=== PATIENT | male | born 1930 | race Hispanic/Latino ===

== ENCOUNTER 2019-02-24 21:05 | Inpatient (IN) | payer MEDICARE ==
[~2019-02-24] VITALS: Ht 157.5 cm; Wt 71.2 kg
[~2019-02-24 21:05] MED LIST: DUTA.5 PO; LISI10TA7 PO; SOLI5 PO
[2019-02-24 22:33] LABS: BASOPHILS % (AUTO) 0.5 % (0.0-5.0); HEMATOCRIT 43.4 % (42-54); LYMPHOCYTES % (AUTO) 3.3 % (21.0-51.0); MEAN CORPUSCULAR HEMOGLOBIN 29.6 pg (27.0-33.0); MEAN CORPUSCULAR HGB CONC 33.4 g/dL (32.0-36.0); MEAN CORPUSCULAR VOLUME 88.5 fL (79-99); MONOCYTES % (AUTO) 3.9 % (3.0-13.0); NEUTROPHILS % (AUTO) 92.3 % (40.0-77.0); PLATELET COUNT (AUTO) 159 K/uL (130-400); RED CELL DISTRIBUTION WIDTH 14.2 % (11.0-15.5); WHITE BLOOD COUNT (AUTO) 15.6 K/uL (4.8-10.8)
[2019-02-24 22:44] LABS: CREATININE 1.3 mg/dL (0.5-1.5)
[2019-02-24] MEDS ORDERED: HYDRALAZINE HCL 20 MG/ML VIAL ONE (22:46)
[2019-02-24] MEDS ORDERED: ONDANSETRON HCL 4 MG/2 ML VIAL ONE (22:46)
[2019-02-24] MEDS ORDERED: MORPHINE SULFATE 4 MG/1ML SYG ONE (22:46)
[2019-02-24 23:01] LABS: ALBUMIN 3.9 g/dL (3.5-5.0); TOTAL PROTEIN, SERUM 7.8 g/dL (6.0-8.3)
[2019-02-24] MEDS ORDERED: ACETAMINOPHEN EXTRA STRENGTH 500 MG TABLET ONE (23:03)
[2019-02-24 23:30] VITALS: BP 149/77
[2019-02-24 23:34] LABS: APPEARANCE,URINE Cloudy (CLEAR); BILIRUBIN,URINE Negative (NEGATIVE); COLOR,URINE Orange (YELLOW); GLUCOSE, URINE (UA) TRACE mg/dL (NEGATIVE); KETONES,URINE 15 mg/dL (NEGATIVE); LEUKOCYTE ESTERASE ,URINE Moderate (NEGATIVE); NITRATE,URINE Negative (NEGATIVE); OCCULT BLOOD,URINE Large (NEGATIVE); PH,URINE 7.5 (5.0-8.0); PROTEIN,URINE POS 2+ mg/dL (NEGATIVE)
[2019-02-24 23:42] LABS: BACTERIA,URINE Moderate /HPF (None Seen); SQUAMOUS EPITHELIAL CELL,UR Few /HPF (0-2); WBC,URINE 51-100 /HPF (0-1)
[2019-02-24 23:43] LABS: MUCUS,URINE Rare LPF (None Seen)
[2019-02-24] MEDS ORDERED: CEFTRIAXONE SODIUM 1 GM ONE (23:53)
[2019-02-25] MEDS: SODIUM CHLORIDE 0.9% 1000ML 1,000 ML IV SCH ×2 (00:05→16:05)
[2019-02-25] MEDS ORDERED: CEFTRIAXONE SODIUM 1 GM IV SCH (00:15)
[2019-02-25] MEDS ORDERED: ONDANSETRON HCL 4 MG/2 ML VIAL IV PRN (00:15)
[2019-02-25] MEDS ORDERED: ACETAMINOPHEN 325 MG TAB PO PRN ×2 (00:15)
[2019-02-25] MEDS ORDERED: HYDRALAZINE HCL 20 MG/ML VIAL IV PRN (00:15)
[2019-02-25] MEDS ORDERED: MORPHINE SULFATE 2 MG/ML 1ML SYG IVP PRN (00:30)
--- NOTE | 2019-02-25 01:20 | NUR ---
ADMISSION. PT ADMITTED INTO ROOM 431 FROM ER VIA STRETCHER. PT AWAKE, ALERT AND RESPONSIVE, NO C/O PAIN OR DISCOMFORT AT THIS TIME. ACCOMPANIED BY FAMILY MEMBERS, PT AND FAMILY ORIENTED TO ROOM, CALL NOLEN IN REACH, BED IN LOWER POSITION. Addendum: 02/25/19 at 0126 by ALICJA MOLINA RN Amended: Links added.
[2019-02-25] MEDS ORDERED: DiphenhydrAMINE HCL 50 MG/ML VIAL IV SCH (02:15)
[2019-02-25] MEDS ORDERED: DiphenhydrAMINE HCL 50 MG/ML VIAL ONE (02:16)
[2019-02-25 03:30] VITALS: BP 138/61
[2019-02-25 04:26] LABS: BASOPHILS % (AUTO) 0.3 % (0.0-5.0); HEMATOCRIT 39.9 % (42-54); LYMPHOCYTES % (AUTO) 2.3 % (21.0-51.0); MEAN CORPUSCULAR HEMOGLOBIN 30.2 pg (27.0-33.0); MEAN CORPUSCULAR VOLUME 88.9 fL (79-99); MONOCYTES % (AUTO) 6.7 % (3.0-13.0); NEUTROPHILS % (AUTO) 90.7 % (40.0-77.0); PLATELET COUNT (AUTO) 142 K/uL (130-400); RED BLOOD CELL COUNT(AUTO) 4.49 MIL/uL (4.50-6.20); RED CELL DISTRIBUTION WIDTH 14.3 % (11.0-15.5); WHITE BLOOD COUNT (AUTO) 21.3 K/uL (4.8-10.8)
[2019-02-25 04:33] LABS: CREATININE 1.3 mg/dL (0.5-1.5); POTASSIUM 3.7 mmol/L (3.5-5.1)
[2019-02-25] MEDS: LEVOFLOXACIN 500 MG/D5W 100 ML 100 ML IV SCH (05:53)
[2019-02-25 08:00] VITALS: BP 135/68
[2019-02-25] MEDS ORDERED: DIPHENHYDRAMINE HCL 25 MG CAPSULE PO PRN (08:00)
[2019-02-25] MEDS: FAMOTIDINE 20MG TAB 20 MG TAB PO SCH (09:09)
[2019-02-25] MEDS: LORATADINE 10 MG TABLET PO SCH (09:09)
[2019-02-25] MEDS: ENOXAPARIN SODIUM 40 MG/0.4 ML SYRINGE SQ SCH (09:10)
[2019-02-25 11:43] VITALS: BP 139/67
[2019-02-25 16:00] VITALS: BP 122/68
--- NOTE | 2019-02-25 16:00 | NUR ---
CONFUSION PATIENT HAS HISTORY OF DEMENTIA. FAMILY STEPPED OUT FOR ERRAND RUN. PATIENT ATTEMPTING TO GET OUT OF BED OVER RAIL. BED ALARM ALERTED ME OF MOVEMENT. PATIENT WISHING TO WALK TO BATHROOM BUT UNSTEADY ON HIS FEET AND DOES NOT WANT MY HELP GETTING HIM OUT OF BED. I ASSISTED PATIENT GETTING OUT OF BED, ALLOWING HIM HIS INDEPENDENCE BUT KEEPING CLOSE BY FOR ASSISTANCE. PATIENT PULLING ON MOSS CATHETER TUBING, STAT LOCK IN PLACE SECURING PATIENT. INSTRUCTED NOT TO FULL CATHETER, PATIENT BECAME UPSET AND WANTED TO WALK TO BATHROOM ALONE AND CLOSE DOOR OF BATHROOM. PATIENT IS CONFUSED, STATING HE IS IN HIS HOME. PATIENT PLACED MOSS CATHETER BAG ON ONE SIDE OF BATHROOM THEN PROCEEDS TO WALK WAY, STRETCHING CATHETER TUBING AND PULLING ON IT. CONTINUES WITH HEMATURIA IN MOSS BAG WELL SMALL BLOOD CLOTS. PATIENT DOES NOT WANT ME TO ASSESS PENIS AND CATHETER. ALETHEA RN, ASSESSED MOSS CATHETER. CATHETER IN PLACE, BALLON FILLED WITH NS ORDERED. STAT LOCK MOVED HIGHER ON THIGH FOR COMFORT. AT THIS TIME, FAMILY RETURNED AND STATED THEY WILL BE AT BEDSIDE FOR SUPERVISION OF PATIENT WHILE IN HOSPITAL. WILL MONITOR PT CLOSELY.
--- NOTE | 2019-02-25 17:27 | NUR ---
cm note met with patient and states resides at home with daughter mohamud, no provider, able to do own bath, daughter assists with transports as needed and adls. no dc needs. dc plan is back to home. Addendum: 02/25/19 at 1730 by GRACE VALDEZ CM Amended: Links added.
[2019-02-25 19:00] VITALS: BP 123/56
[2019-02-25 23:27] VITALS: BP 139/55
[2019-02-26] VITALS (7 sets, daily range): BP systolic 131–171; BP diastolic 65–77
[2019-02-26] MEDS: SODIUM CHLORIDE 0.9% 1000ML 1,000 ML IV SCH ×4 (00:36→23:08)
[2019-02-26 05:14] LABS: BASOPHILS % (AUTO) 0.2 % (0.0-5.0); EOSINOPHILS % (AUTO) 0.1 % (0.0-8.0); LYMPHOCYTES % (AUTO) 7.7 % (21.0-51.0); MEAN CORPUSCULAR HEMOGLOBIN 30.1 pg (27.0-33.0); MEAN CORPUSCULAR VOLUME 88.5 fL (79-99); MONOCYTES % (AUTO) 7.1 % (3.0-13.0); NEUTROPHILS % (AUTO) 84.9 % (40.0-77.0); PLATELET COUNT (AUTO) 138 K/uL (130-400); RED BLOOD CELL COUNT(AUTO) 4.07 MIL/uL (4.50-6.20); RED CELL DISTRIBUTION WIDTH 14.3 % (11.0-15.5)
[2019-02-26 05:38] LABS: ALBUMIN 2.7 g/dL (3.5-5.0); CREATININE 1.2 mg/dL (0.5-1.5); POTASSIUM 3.7 mmol/L (3.5-5.1); TOTAL PROTEIN, SERUM 6.1 g/dL (6.0-8.3)
[2019-02-26] MEDS: ENOXAPARIN SODIUM 40 MG/0.4 ML SYRINGE SQ SCH (08:20)
[2019-02-26] MEDS: FAMOTIDINE 20MG TAB 20 MG TAB PO SCH (08:20)
[2019-02-26] MEDS ORDERED: DUTA0.5C17 PO (09:36)
[2019-02-26] MEDS ORDERED: TAMS-1 PO (09:36)
[2019-02-26] MEDS ORDERED: ATOR10 PO (09:36)
[2019-02-26] MEDS ORDERED: LISI10TA7 PO (09:36)
[2019-02-26] MEDS: LORATADINE 10 MG TABLET PO SCH (10:07)
[2019-02-26] MEDS: DOXYCYCLINE HYCLATE 100 MG TABLET PO SCH ×2 (10:12→20:09)
[2019-02-26] MEDS: FINASTERIDE 5 MG TABLET PO SCH (10:12)
[2019-02-26] MEDS: TAMSULOSIN HCL 0.4 MG CAP.ER.24H PO SCH (10:12)
[2019-02-26] MEDS: LACTULOSE 20 GM/30 ML UDCUP PO PRN (10:12)
--- NOTE | 2019-02-26 13:27 | NUR ---
CM NOTE SON FAWN VELASQUEZ [phone] BEDSIDE CLARIFIED DC PLAN HOME, PREVIOUSLY INDP, NOW WEAKER PT DOES NOT HAVE PROVIDER - REFERRED TO [facility]/ [facility]; SON STATES PT HAD A TURP IN [place], HAS HAD A CIRC IN [place] BY DR. WELLS; IS HERE BECAUSE OF URINARY OBSTRUCTION/HEMATURIA; NO PT YET, SON STATES THE GOAL WOULD BE HOME, PT HAS TRANSPORT IF [facility] IS NEEDED
[2019-02-26] MEDS: ATORVASTATIN CALCIUM 10 MG TABLET PO SCH (20:09)
--- NOTE | 2019-02-27 02:10 | NUR ---
CONFUSION PATIENT VERY CONFUSED DOES NOT KNOW HE IS IN THE HOSPITAL AND IS BEING VERY COMBATIVE TOWARDS STAFF AND SON. PATIENT IS TRYING TO PULL OUT MOSS CATHETER AND IV SITE. HE WILL NOT REMAIN IN BED AND IS WALKING DOWN THE HALLS TRYING TO GET INTO OTHER PATIENT'S ROOMS. I XIOMARA JOHNSTON CALLED AND NOTIFIED OF PATIENT STATUS. NEW ORDERS GIVEN AND CARRIED OUT. SON AT SIDE AT ALL TIMES.
[2019-02-27] MEDS ORDERED: LORAZEPAM 2 MG/ML 1 ML VIAL ONE (02:38)
[2019-02-27] MEDS ORDERED: LORAZEPAM 2 MG/ML 1 ML VIAL IVP PRN (02:45)
--- NOTE | 2019-02-27 04:00 | NUR ---
CONFUSION PATIENT CONTINUES TO BE COMBATIVE TOWARDS STAFF AND TRYING TO TAKE OUT MOSS CATHETER.
[2019-02-27] MEDS: LEVOFLOXACIN 500 MG/D5W 100 ML 100 ML IV SCH (04:30)
--- NOTE | 2019-02-27 04:30 | NUR ---
CONFUSION PATIENT IS NOW CALMER AND SLEEPY SON AND STAFF AT SIDE. WILL CONTINUE TO MONITOR.
[2019-02-27 07:17] LABS: BASOPHILS % (AUTO) 0.2 % (0.0-5.0); EOSINOPHILS % (AUTO) 0.6 % (0.0-8.0); HEMATOCRIT 36.2 % (42-54); LYMPHOCYTES % (AUTO) 6.4 % (21.0-51.0); MEAN CORPUSCULAR HGB CONC 33.8 g/dL (32.0-36.0); MEAN CORPUSCULAR VOLUME 88.7 fL (79-99); NEUTROPHILS % (AUTO) 85.8 % (40.0-77.0); PLATELET COUNT (AUTO) 145 K/uL (130-400); RED BLOOD CELL COUNT(AUTO) 4.08 MIL/uL (4.50-6.20); RED CELL DISTRIBUTION WIDTH 14.2 % (11.0-15.5); WHITE BLOOD COUNT (AUTO) 15.5 K/uL (4.8-10.8)
[2019-02-27 07:30] LABS: ALBUMIN 2.5 g/dL (3.5-5.0); BILIRUBIN,TOTAL 0.9 mg/dL (0.2-1.0); POTASSIUM 3.6 mmol/L (3.5-5.1); TOTAL PROTEIN, SERUM 6.1 g/dL (6.0-8.3)
[2019-02-27 07:55] VITALS: BP 150/88
[2019-02-27] MEDS ORDERED: LEVOFLOXACIN 500 MG TABLET PO SCH (09:30)
[2019-02-27] MEDS ORDERED: METOPROLOL TARTRATE 25 MG TAB PO SCH (09:30)
[2019-02-27 11:42] VITALS: BP 147/77
[2019-02-27] MEDS: FAMOTIDINE 20MG TAB 20 MG TAB PO SCH (11:50)
[2019-02-27] MEDS: TAMSULOSIN HCL 0.4 MG CAP.ER.24H PO SCH (11:50)
[2019-02-27] MEDS: FINASTERIDE 5 MG TABLET PO SCH (11:51)
[2019-02-27] MEDS: LORATADINE 10 MG TABLET PO SCH (11:51)
[2019-02-27] MEDS: DOXYCYCLINE HYCLATE 100 MG TABLET PO SCH ×2 (11:51→20:38)
[2019-02-27] MEDS: LISINOPRIL 10 MG TABLET PO SCH (11:51)
[2019-02-27] MEDS: ENOXAPARIN SODIUM 40 MG/0.4 ML SYRINGE SQ SCH (11:54)
[2019-02-27 16:52] VITALS: BP 147/78
[2019-02-27 19:33] VITALS: BP 128/60
[2019-02-27] MEDS: ATORVASTATIN CALCIUM 10 MG TABLET PO SCH (20:38)
[2019-02-27] MEDS: METOPROLOL TARTRATE 25 MG TAB PO SCH (20:38)
[2019-02-27 23:30] VITALS: BP 142/89
[2019-02-28 03:30] VITALS: BP 157/78
[2019-02-28 06:13] LABS: HEMATOCRIT 34.4 % (42-54); MEAN CORPUSCULAR HGB CONC 33.9 g/dL (32.0-36.0); MEAN CORPUSCULAR VOLUME 88.4 fL (79-99); NUCLEATED RED BLOOD CELLS 0.1 % (0.0-0.19); PLATELET COUNT (AUTO) 185 K/uL (130-400); RED BLOOD CELL COUNT(AUTO) 3.89 MIL/uL (4.50-6.20); RED CELL DISTRIBUTION WIDTH 14.3 % (11.0-15.5); WHITE BLOOD COUNT (AUTO) 11.4 K/uL (4.8-10.8)
[2019-02-28 06:25] LABS: ALBUMIN 2.5 g/dL (3.5-5.0); BILIRUBIN,TOTAL 0.9 mg/dL (0.2-1.0); POTASSIUM 3.4 mmol/L (3.5-5.1)
[2019-02-28 07:25] LABS: EOSINOPHILS % (MANUAL) 3 % (1-6); LYMPHOCYTES % (MANUAL) 17 % (22-44); MAN.DIFF COMMENT-IMPRESSION MANUAL DIFFERENTIAL; MONOCYTES % (MANUAL) 7 % (2-9); PLATELET MORPHOLOGY COMMENT ADEQUATE; SEGMENTED NEUTROPHILS % 73 % (40-70)
[2019-02-28 08:00] VITALS: BP 169/86
[2019-02-28] MEDS: METOPROLOL TARTRATE 25 MG TAB PO SCH (08:58)
[2019-02-28] MEDS: DOXYCYCLINE HYCLATE 100 MG TABLET PO SCH (08:58)
[2019-02-28] MEDS: FINASTERIDE 5 MG TABLET PO SCH (08:58)
[2019-02-28] MEDS: LORATADINE 10 MG TABLET PO SCH (08:59)
[2019-02-28] MEDS: FAMOTIDINE 20MG TAB 20 MG TAB PO SCH (08:59)
[2019-02-28] MEDS: LISINOPRIL 10 MG TABLET PO SCH (08:59)
[2019-02-28] MEDS: TAMSULOSIN HCL 0.4 MG CAP.ER.24H PO SCH (08:59)
[2019-02-28] MEDS: ENOXAPARIN SODIUM 40 MG/0.4 ML SYRINGE SQ SCH (09:00)
[2019-02-28] MEDS ORDERED: LEVOFLOXACIN 500 MG TABLET PO SCH (09:00)
[2019-02-28] MEDS: LACTULOSE 20 GM/30 ML UDCUP PO PRN (09:02)
[2019-02-28] MEDS ORDERED: LEVO500T2 PO (09:15)
[2019-02-28] MEDS ORDERED: POTASSIUM CHLORIDE 10% ELIXIR 20 MEQ/15 ML UDCUP PO SCH (09:15)
[2019-02-28] MEDS ORDERED: METO25 PO (09:15)
--- NOTE | 2019-02-28 11:30 | NUR ---
DISCHARGE DISCHARGE TEACHING DONE WITH PATIENT AND FAMILY USING TEACHBACK METHOD, VERBALIZED UNDERSTANDING. NO NOTED SOB OR DISTRESS. NEW MEDICATION ADMINISTRATION TEACHING DONE WITH PATIENT AND FAMILY USING TEACHBACK METHOD, VERBALIZED UNDERSTANDING. FAMILY AWARE OF NEED TO SET UP APPOINTMENT WITH PCP AND UROLOGIST. IV REMOVED, CATH TIP INTACT. PENDING TO BE TRANSFERRED OUT VIA PRIVATE VEHICLE.
== END 2019-02-28 11:25 | disposition home or self-care (01) | DRG 872 ==
LOC: EDH 21:05 → EDHIP 02-25 00:05 → 4AH 02-25 01:03
PROVIDERS: ADMIT Family Medicine; ATTEND Family Medicine
DX: A41.9 Sepsis, unspecified organism (principal); N12 Tubulo-interstitial nephritis, not specified as acute or chronic; N13.8 Other obstructive and reflux uropathy; L27.0 Generalized skin eruption due to drugs and medicaments taken internally; F03.90 Unspecified dementia, unspecified severity, without behavioral disturbance, psychotic disturbance, mood disturbance, and anxiety; N40.1 Benign prostatic hyperplasia with lower urinary tract symptoms; I10 Essential (primary) hypertension; E78.5 Hyperlipidemia, unspecified; K57.90 Diverticulosis of intestine, part unspecified, without perforation or abscess without bleeding; T36.1X5A Adverse effect of cephalosporins and other beta-lactam antibiotics, initial encounter; Y92.89 Other specified places as the place of occurrence of the external cause; Z88.8 Allergy status to other drugs, medicaments and biological substances; Z83.3 Family history of diabetes mellitus; Z82.49 Family history of ischemic heart disease and other diseases of the circulatory system
CPT/HCPCS: 36415; 74176; 80048; 80053; 81001; 83605; 83690; 84153; 84484; 85025; 87040; 87088; 93005; 97039; G0378; J0360; J0696; J1200; J1650; J1956; J2060; J2270; J2405; J7030